=== PATIENT | female | born 1985 | race Two or more races ===

== ENCOUNTER 2024-03-10 22:04 | Emergency (ER) | payer OTHER ==
[~2024-03-10] VITALS: Ht 162.6 cm; Wt 97.5 kg
[2024-03-11] MEDS: IBUPROFEN 400 MG TABLET PO ONE (01:17)
[2024-03-11] MEDS ORDERED: IBUPROFEN 400 MG TABLET ONE (01:17)
[2024-03-11 02:21] VITALS: BP 122/77; TEMP 98.6; O2SAT 99
== END 2024-03-11 02:22 | disposition home or self-care (01) ==
LOC: ER 22:08
DX: S30.0XXA Contusion of lower back and pelvis, initial encounter (principal); S09.8XXA Other specified injuries of head, initial encounter; Z88.0 Allergy status to penicillin; W07.XXXA Fall from chair, initial encounter; Y93.89 Activity, other specified; Y92.89 Other specified places as the place of occurrence of the external cause; Y99.8 Other external cause status
CPT/HCPCS: 70450-TC; 72220-TC